=== PATIENT | male | born 1965 | race Caucasian/White ===

== ENCOUNTER 2018-03-04 22:49 | Emergency (ER) | payer SELFPAY ==
[2018-03-04 22:56] VITALS: TEMP 97.8
[2018-03-04 23:33] VITALS: PULSE 92; O2SAT 95
--- NOTE | 2018-03-04 23:55 | ED PDOC ---
HPI: Psych/Substance Abuse Time Seen by Provider: 03/04/18 22:54 Chief Complaint (Nursing): Alcohol Ingestion ED Caveat: Intoxicated History Per: Patient History/Exam Limitations: intoxication Onset/Duration Of Symptoms: Hrs Additional Complaint(s): PAtient arrives to ER for evaluation of alcohol intoxication. Patient denies this and drug use. Denies injuries. States "I'm here to relax." Past Medical History Reviewed: Unable To Obtain Vital Signs: Last Vital Signs Temp 97.8 F 03/04/18 22:54 Pulse 92 H 03/04/18 23:33 Resp 18 03/04/18 23:33 BP 146/101 H 03/04/18 22:54 Pulse Ox 95 03/04/18 23:33 - Family History Family History: States: Unknown Family Hx - Allergies Allergies/Adverse Reactions: Allergies Allergy/AdvReac Type Severity Reaction Status Date / Time No Known Allergies Allergy Verified 03/04/18 22:51 Review of Systems Review Of Systems: ROS cannot be obtained secondary to pt's inabilty to answer questions. Physical Exam - Reviewed Nursing Documentation Reviewed: Yes Vital Signs Reviewed: Yes - Physical Exam Appears: Positive for: Non-toxic, No Acute Distress. Negative for: Well (Intoxicated appearing, slurred speech) Head Exam: Positive for: ATRAUMATIC, NORMAL INSPECTION, NORMOCEPHALIC Skin: Positive for: Normal Color, Warm, DRY Eye Exam: Positive for: EOMI, Normal appearance, PERRL ENT: Positive for: Normal ENT Inspection Neck: Positive for: Normal, Painless ROM Cardiovascular/Chest: Positive for: Regular Rate, Rhythm Respiratory: Positive for: CNT, Normal Breath Sounds Gastrointestinal/Abdominal: Positive for: Normal Exam, Soft Back: Positive for: Normal Inspection Extremity: Positive for: Normal ROM, Other (Abrasions to RLE, minimal) Neurologic/Psych: Positive for: Alert, fig washer II-XII, Oriented (x 3), Gait (Unsteady). Negative for: Motor/Sensory Deficits - ECG O2 Sat by Pulse Oximetry: 95 Medical Decision Making Medical Decision MakinPM Patient presenting with alcohol intoxication No significant injuries noted Will observe till sober 330AM Patient is awake, alert, steady gait, clinically sober Will discharge Vitals stable Disposition - Clinical Impression Clinical Impression: Alcohol abuse - Disposition Referrals: Alcoholics Anonymous [Outside] Disposition: Routine/Home Disposition Time: 03:30 Condition: IMPROVED Instructions: Alcohol Abuse and Alcoholism (DC) Forms: [employer] ([place]wana)
[2018-03-05 00:02] VITALS: BP 125/81
[2018-03-05 03:46] VITALS: RESP 16
== END 2018-03-05 03:30 | disposition home or self-care (01) ==
LOC: H.ER 22:49
DX: F10.129 Alcohol abuse with intoxication, unspecified (principal); Y90.8 Blood alcohol level of 240 mg/100 ml or more
CPT/HCPCS: 82948; 99284; G0480